=== PATIENT | female | born 1990 | race Caucasian/White ===

== ENCOUNTER 2020-05-05 18:04 | Inpatient (IN) | payer BC ==
[~2020-05-05] VITALS: Ht 165.1 cm; Wt 80.6 kg
[2020-05-05 19:42] VITALS: BP 112/68
[2020-05-05] MEDS ORDERED: LIT300C PO (21:14)
[2020-05-05] MEDS ORDERED: SERT50TA10 PO (21:14)
[2020-05-05] MEDS ORDERED: HYDR50TA65 PO (21:14)
--- NOTE | 2020-05-05 23:05 | NUR ---
Per Lorena: pt has been cleared by Dr. Soliman disease specialist to be released from any isolation or quarantine protocol as of 04/29/20, based on a positive 04/19/20 test. Per Topher Mejias, per Dr Vines, pt has been cleared for placement to [facility].
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
[2020-05-06] MEDS ORDERED: LORazepam 1 MG tablet PO PRN (02:25)
[2020-05-06] MEDS ORDERED: magnesium hydroxide 30ml (MOM) UD suspension PO PRN (02:25)
[2020-05-06] MEDS ORDERED: mag hydrox/Alum hydrox/simeth 30ml oral suspension PO PRN (02:25)
[2020-05-06] MEDS ORDERED: traZODone 50mg tablet PO PRN (02:25)
[2020-05-06] MEDS ORDERED: acetaminophen 325mg tablet PO PRN (02:25)
[2020-05-06] MEDS ORDERED: loperamide 2mg capsule PO PRN (02:25)
[2020-05-06] MEDS ORDERED: hydrOXYzine 25 MG tablet PO ONE (02:35)
[2020-05-06] MEDS ORDERED: lithium carbonate 150mg capsule PO SCH (08:00)
[2020-05-06 08:02] VITALS: BP 108/67
[2020-05-06] MEDS: sertraline 50mg tablet PO SCH (08:08)
--- NOTE | 2020-05-06 10:00 | NUR ---
Group Therapy: Process Group This Clinicians goals for this process group were as follows: (1) Ask scaling questions about Patients current anxiety, depression, and irritability symptoms as a check-in. (2) Share psychoeducation about automatic thoughts and cognitive distortions. (3) Share psychoeducation on CBT thought-stopping and, thought-reframing. (4) Discuss strategies for identifying negative, unhelpful, and/or irrational thoughts as quickly as possible to avoid unwanted escalation of mental health symptoms. (5) Process patients thoughts and reflections on this topic within the group milieu. Patient identified experiencing the following levels of anxiety, depression, and anger/irritability while present in the group milieu (0-low; 10-High). Anxiety: 12/16 Depression: 11/15 Anger/irritability: 10/16 Patient presented as properly oriented x4 during the process group. Patient was dressed in a white, long-sleeved shirt with blue jodi jeans that were appropriate within the milieu. Patient also wore a white face-covering. Psychomotor activity was unremarkable. Patient's thought content was clear, and concrete. Patient's thought process was clear, coherent, and linear. This Clinician did not observe Patient responding to any internal stimuli during session. The rate, and latency of Patients speech was within normal limits. Her tone of voice was soft. Patient maintained regular eye contact with this Clinician. Patient presented in calm euthymic mood, with congruent affect during the process group. Patient presented as cooperative, verbally engaged when called upon by this Clinician, and nonobtrusive within the group milieu. Patient occasionally made comments during the process group discussion on thinking errors and CBT interventions thought-stopping, and thought reframing when called upon by this Clinician to do so. Patient's answers indicated good awareness of the material being discussed. Omi Marina MA, BONDED STRAND OPERATOR Addendum: 05/07/20 at 0803 by Omi Marina Amended: Links added.
[2020-05-06] MEDS ORDERED: lithium carbonate 300mg SR tablet (LithoBID) PO ONE (10:15)
--- NOTE | 2020-05-06 14:08 | NUR ---
Malnutrition consult: Pt reports 2-13 lb wt loss with decreased appetite per malnutrition risk screen with RN. No wt hx in EMR, current documented wt is 137% IBW. Pt on a regular diet documented with average 50% PO intake first two meals. No documented decrease in muscle strength or edema. Pt currently lacks a minimum of two criteria for malnutrition. Will continue to follow and monitor further trends in PO intake and need for nutrition intervention. Addendum: 05/06/20 at [address] Amended: Links added.
[2020-05-06] MEDS ORDERED: risperiDONE 2mg tablet PO ONE (16:00)
[2020-05-06] MEDS ORDERED: hydrOXYzine 25 MG tablet PO PRN (16:30)
--- NOTE | 2020-05-06 17:57 | NUR ---
Nursing Progress Note: Legal hold: 5150 Client on involuntary status for GD Report received from TARI Salomon with use of SBAR. Why are they here: 29 y.o. female on 515 for acute psychosis and grave disability. Strong auditory hallucinations with delusions of hell and demons. Patient with recent diagnosis of COVID with positive testing on April 19 per reported hx and has been asymptomatic per family and pt. since April 26. Pt. has hx of bipolar d/o with similar psychotic symptoms 5 years ago. Assessment What has happened this shift: Received pt. at beginning of shift asleep in bed. Pt. up for breakfast and medications. Pt. refused her Tallmadge, reporting she only takes Tallmadge XR. Pt.s Tallmadge changed to Lithobid 300 BID per MDs order. Pt. took all meds. Pt. went back to sleep after breakfast, reporting feeling tired because she did not sleep much last night. 1:1 assessment done at bedside. Pt. becomes tearful when asked about why she is here. Pt. displays thought blocking stating, A heaviness just came on me I dont know. PT. asked if she felt safe, pt. states, I dont feel safe I dont know whats going on RN reinforced safety of unit. Pt. reports that she wants to go back to sleep. Pt. isolated to her room most of the day. Pt. overheard conversing with roommate. Pt. ate all meals in the community room. S/I, H/I: Denies. A/VH: Denies. Sleep: Intermittently napping throughout the day. Pt. states, I did not sleep so good last night. ADL's: Independent Group attendance: Yes. Were meds taken: Yes. Any med S/E No Mental Status Exam Appearance: Clean, well-kempt, young woman with glasses. Eye contact: direct Behavior: Restless Speech: Poverty of speech. Mood: Depressed, anxious Affect: Congruent with mood. Thought process: linear. Thought Content: Discharge. Cognition: A+OX4 Insight: Poor Judgment: Poor Interventions PRN's used: None Therapeutic interventions: Maintained a safe and supportive milieu, provided clear and simple instructions, encouraged independent performance of ADLs, monitored behaviors and need for intervention, provided positive reassurance as needed; Q15 min safety checks. Restraints/seclusion/emergency medication: N/A Justification of Continued Inpatient Treatment: Patient requires interruption of current crisis, medication adjustments, and a safe and supportive environment.
[2020-05-06 19:45] VITALS: BP 117/71
[2020-05-06] MEDS ORDERED: lithium carbonate 300mg SR tablet (LithoBID) PO SCH (20:00)
[2020-05-06] MEDS: hydrOXYzine 25 MG tablet PO SCH ×2 (21:00→21:06)
[2020-05-06] MEDS ORDERED: hydrOXYzine 25 MG tablet PO SCH (21:00)
[2020-05-06] MEDS: lithium carbonate 450mg CR tablet PO SCH (21:05)
[2020-05-06] MEDS: risperiDONE 0.5mg tablet PO SCH (21:06)
--- NOTE | 2020-05-06 21:45 | NUR ---
Nursing Progress Note: Legal hold: 5150 Client on involuntary status for GD Report received from Robert MARC with use of SBAR. Why are they here: 29 y.o. female on 5150 for acute psychosis and grave disability. Strong auditory hallucinations with delusions of hell and demons. Patient with recent diagnosis of COVID with positive testing on April 19 per reported hx and has been asymptomatic per family and pt. since April 26. Pt. has hx of bipolar d/o with similar psychotic symptoms 5 years ago. Assessment What has happened this shift: Pt isolates to her bedroom the entirety of the shift. She is visited by Dr. Coleman and is cooperative with assessment. Pt is soft spoken and timid. She answers questions adequately, but it takes her a few moments to respond and she apologizes. She said she is "very forgetful lately." She denies SI/HI/AH/VH at this time. She does have a flat affect and is minimal in her responses, she seems unsure of most things. She is cooperative with 1:1 assessment and takes the Eskilith 450mg and 1.5 mg of Risperdal after medication education. She declines the hydroxyzine for tonight because she isn't sure how the Risperdal will make her feel. S/I, H/I: Denies. A/VH: Denies. Sleep: see sleep assessment ADL's: Independent Group attendance: Yes Were meds taken: declined hydroxyzine Any med S/E None reported, none observed Mental Status Exam Appearance: Clean, WNL Eye contact: direct Behavior: isolative but cooperative Speech: Poverty of speech Mood: Depressed, anxious Affect: Congruent with mood. Thought process: linear Thought Content: understanding medications Cognition: A+OX4 Insight: Poor Judgment: Poor Interventions PRN's used: None Therapeutic interventions: Maintained a safe and supportive milieu, provided clear and simple instructions, encouraged independent performance of ADLs, monitored behaviors and need for intervention, provided positive reassurance as needed; Q15 min safety checks. Restraints/seclusion/emergency medication: N/A Justification of Continued Inpatient Treatment: Patient requires interruption of current crisis, medication adjustments, and a safe and supportive environment.
[2020-05-07 06:35] LABS: CHOL/HDL RATIO 3.5 (0.00-4.99); CHOLESTEROL 149 MG/DL (0-200); HDL CHOLESTEROL 42 MG/DL (35-60); LDL CHOLESTEROL 89 MG/DL (50-100); TRIGLYCERIDES 89 MG/DL (20-135)
[2020-05-07 06:37] LABS: HEMOGLOBIN A1C 5.6 % (4.5-6.2)
[2020-05-07 07:30] VITALS: BP 119/77
[2020-05-07] MEDS: sertraline 50mg tablet PO SCH (07:42)
[2020-05-07] MEDS: lithium carbonate 450mg CR tablet PO SCH ×2 (07:42→20:17)
[2020-05-07] MEDS: risperiDONE 0.5mg tablet PO SCH ×2 (08:00→20:18)
--- NOTE | 2020-05-07 10:00 | NUR ---
Group Therapy: Process Group This Clinicians goals for this process group were as follows: (1) Ask scaling questions about Patients current anxiety, depression, and irritability symptoms as a check-in. (2) Share psychoeducation about self-efficacy, and ego strength. (3) Provide psychoeducation on [employer] Drama triangleVictim, Persecutor, Rescuer dynamic. (4) Share psychoeducation on developing positive ego strengthpositive affirmations, positive self-talk, transitioning from a victim of circumstances to a survivor of circumstances. (5) Process patients thoughts and reflections on this topic within the group milieu. Patient identified experiencing the following levels of anxiety, depression, and anger/irritability while present in the group milieu (0-low; 10-High). Anxiety: 01/15 Depression: 12/16 Anger/irritability: 11/15 Patient presented as properly oriented x4 during the process group. Patient was dressed in nondescript, personal clothing that were appropriate within the milieu. Psychomotor activity was unremarkable. Patient's thought content was clear, and concrete. Patient's thought process was clear, coherent, and linear. This Clinician did not observe Patient responding to any internal stimuli during session, though she did report that she was feeling, "Confusion," when this Clinician asked her to describe any sensations that she was feeling in her body, due to her elevated anxiety score of 7/10. The rate, and latency of Patients speech was slightly delayed. Her tone of voice was soft. Patient maintained regular eye contact with this Clinician. Patient presented in calm euthymic mood, with congruent affect during the process group. Patient presented as: open, cooperative, verbally engaged when called upon by this Clinician, and nonobtrusive within the group milieu. Patient was an active participant during the process group discussion on [employer] Drama Waldo: which discussed the Victim, Persecutor, Rescuer dynamic, in addition to the discussion on positive affirmations that one could repeat to themselves to assist them in transitioning from the mindset of a victim to that of a survivor. Patient was able to identify positive affirmations that she could say about herself to develop positive ego strength in the spirit of strengthening a survivor's mentality. Omi Marina MA, OIL OPERATOR Addendum: 05/07/20 at 1138 by Omi Marina SS Amended: Links added.
--- NOTE | 2020-05-07 11:50 | NUR ---
PSYCHOSOCIAL ASSESSMENT Cirs is a 29 y/o single female who was placed on a 5150 by [facility] for grave disability. She was brought to [facility] by her roommates because she was speaking incoherently, having trouble getting her words out, had not come out of her room for 24 hours and was found in her bed which she had urinated and defecated in. Cris moved to [place] from [place] at the end of February to attend [employer]. She lives with a couple about 5 other housemates in [place]. She was tested for Covid due to an outbreak at her school. She wsa the only one of her roommates that tested positive and had to quarantine in her room. She reported she had been feeling "dark, heavy, depressed, something weighing on me" prior to testing positive for Covid. She reported she also started to have racing thoughts and could not sleep. She was a little fuzzy on the details which brought her to [facility]. She reported she had a similar episode 5 years ago in which she was hospitalized and diagnosed with Bipolar. She reported at that time she was prescribed lithium and an antipsychotic (could not recall the name). She was able to stop taking the antipsychotic and has continued taking a low dose of lithium. She asked jingle writer if there was a medication that could help with voices, however, she stated she was not entirely sure if she was hearing voices or not. She presented as paranoid and stated she was worried her food and water was poisoned. She stated she has been able to eat here at [facility], yet she is still concerned about being poisoned. She reported she is still feeling fearful and scared. Her responses to questions were often delayed as if she may have been attending to internal stimuli. She seemed paranoid to provide some information and at times it appeared as if she really did not recall the information being asked. Cris signed a release for jingle writer to speak to her parents. Mh Teacher will call dad back today as he had called yesterday prior to release being signed. LIDIA Serrano Addendum: 05/07/20 at 1152 by Saskia Rosenberg SS Amended: Links added.
--- NOTE | 2020-05-07 12:16 | NUR ---
MED INFO FROM DAD Spoke to Cris's dad, Moise Zhu (ph# [phone]), who reported that Cris was on [place] and 15 mg Zyprexa when she was hospitalized 5 years ago. He reported she did well on Zyprexa and was eventually tapered off it once her psychosis abated. This morning Cris refused her risperdal due to side effects after she took it last night. Dad reported Cris called her psychiatrist in [place] when she began to feel depressed and he started her on zoloft a couple weeks ago. Psychiatrist has been apprised of Cris's current hospitalization. Psychiatrist: Dr Marcos Hilaroi Office # [phone] LIDIA Serrano Addendum: 05/07/20 at 1323 by Saskia Rosenberg SS Maida called back to clarify doses of Zyprexa Zyprexa: 5 mg QAM, 10 mg QHS
[2020-05-07] MEDS: acetaminophen 325mg tablet PO PRN (16:59)
--- NOTE | 2020-05-07 18:02 | NUR ---
Nursing Progress Note: Legal hold: 5150 Client on involuntary status for GD Report received from Mile Mcgraw RN with use of SBAR. Why are they here: 29 y.o. female on 5149 for acute psychosis and grave disability. Strong auditory hallucinations with delusions of hell and demons. Patient with recent diagnosis of COVID with positive testing on April 19 per reported hx and has been asymptomatic per family and pt. since April 26. Pt. has hx of bipolar d/o with similar psychotic symptoms 5 years ago. Assessment What has happened this shift: Received pt. at beginning of shift asleep in bed. Pt. refused Risperdal but took lithium and Zoloft. Pt. reports lithium made her feel like I was being tortured last night. Pt. ate all meals in the community room. Pt. isolated to her room in the AM. 1:1 done at bedside. Pt. asks this RN if the staff have her best interests in mind. RN reinforced trustworthiness of the staff. Pt. denies SI/HI, when RN asked pt. if she was hearing voices pt. did not respond. Pt. stopped talking after this. RN saw pt. in cano pacing. RN asked pt. how she was feeling, pt. states, I dont know. Pt. began to cry. RN asked pt. if she was feeling fearful and pt. did not respond. RN asked pt. if she wanted to talk in her room, pt. did not respond. Pt. then states she feels tension in her head Pt. states, Something has been implanted in me to track me. Yuridia had tightness in my head for 2 years. Pressure. Its been like this every day. RN offered PRN analgesic and pt. took Tylenol 650mg with good effect. S/I, H/I: Denies. A/VH: Denies. Sleep: Intermittently napping throughout the day ADL's: Independent Group attendance: Yes. Were meds taken: Yes. Any med S/E No Mental Status Exam Appearance: Clean, well-kempt, young woman with glasses. Eye contact: direct Behavior: Isolates to room in the AM. Pacing in the afternoon, suspicious. Speech: Soft, minimal, poverty of speech. Mood: Depressed and anxious Affect: Congruent with mood. Thought process: Paranoid, tangential. Thought Content: Discharge. Cognition: A+OX4 Insight: Poor Judgment: Poor Interventions PRN's used: Tylenol Therapeutic interventions: Maintained a safe and supportive milieu, provided clear and simple instructions, encouraged independent performance of ADLs, monitored behaviors and need for intervention, provided positive reassurance as needed; Q15 min safety checks. Restraints/seclusion/emergency medication: N/A Justification of Continued Inpatient Treatment: Patient requires interruption of current crisis, medication adjustments, and a safe and supportive environment.
[2020-05-07 19:47] VITALS: BP 117/74
[2020-05-07] MEDS: hydrOXYzine 25 MG tablet PO SCH ×2 (20:18→21:00)
[2020-05-07 21:33] VITALS: BP 107/94
--- NOTE | 2020-05-08 01:10 | NUR ---
Nursing Progress Note: Legal hold: 5150 Client on involuntary status for GD Report received from Robert MARC with use of SBAR. Why are they here: 29 y.o. female on 515 for acute psychosis and grave disability. Strong auditory hallucinations with delusions of hell and demons. Patient with recent diagnosis of COVID with positive testing on April 19 per reported hx and has been asymptomatic per family and pt. since April 26. Pt. has hx of bipolar d/o with similar psychotic symptoms 5 years ago. Assessment What has happened this shift: Pt was pacing the isles during shift change. When asked how she was doing she states Im just walking, is that okay? Her heart rate was elevated (120bpm) and when this RN asked if she was feeling anxious she states I just feel like there is some bad people in here. Ensured her that she was safe here and that nothing would happen to her. Offered pt antianxiety medication but she refused. Pt continued to pace for a while. She was cooperative for 1:1 physical assessment, however she only took [place]. She refused to take Risperidone and Atarax stating that he Doctor had told her that she didnt need this medication. Even after some encouragement and education pt still refused. She denies any A/VH, S/I, or H/I. She appears very depressed and paranoid about being here. A few minutes after taking [place], pt states that she was feeling like she was going to faint. Vital signs were taken and they were WNL. (BP was 107/94, HR 99) She also requested to take a shower. She asked this RN to stand outside of the bathroom while she took the shower. However she later on changed her mind because she was not able to use her own shampoo. At around midnight when checking on pt, she requested to take a shower. She did and requested for this RN to stand outside the door while she was in there. S/I, H/I: Denies. A/VH: Denies. Sleep: Had some trouble falling asleep but refused any meds ADL's: Independent Group attendance: Yes Were meds taken: Only took [place] Any med S/E: Pt reports that she feels dizzy after taking [place] Mental Status Exam Appearance: Appropriate, clean, wearing personal clothing Eye contact: Indirect, very minimal Behavior: Very paranoid, pacing, guarded Speech: Poverty of speech Mood: Depressed, fearful Affect: Flat Thought process: Linear Thought Content: Believes that people here are going to harm her, meds Cognition: A+OX4 Insight: Poor Judgment: Poor Interventions PRN's used: None Therapeutic interventions: Maintained a safe and supportive milieu, provided clear and simple instructions, encouraged independent performance of ADLs, monitored behaviors and need for intervention, provided positive reassurance as needed; Q15 min safety checks. Restraints/seclusion/emergency medication: N/A Justification of Continued Inpatient Treatment: Patient requires interruption of current crisis, medication adjustments, and a safe and supportive environment.
[2020-05-08] MEDS: acetaminophen 325mg tablet PO PRN (04:06)
[2020-05-08 07:40] VITALS: BP 118/79
[2020-05-08] MEDS: lithium carbonate 450mg CR tablet PO SCH ×2 (07:42→20:36)
[2020-05-08] MEDS: sertraline 50mg tablet PO SCH (07:42)
--- NOTE | 2020-05-08 18:07 | NUR ---
Nursing Progress Note: Legal hold: 5150 Client on involuntary status for GD Report received from Mile Mcgraw RN with use of SBAR. Why are they here: 29 y.o. female on 5149 for acute psychosis and grave disability. Strong auditory hallucinations with delusions of hell and demons. Patient with recent diagnosis of COVID with positive testing on April 19 per reported hx and has been asymptomatic per family and pt. since April 26. Pt. has hx of bipolar d/o with similar psychotic symptoms 5 years ago. Assessment What has happened this shift: Pt. in bed asleep at start of shift. Pt. up for breakfast and took medications. Pt. ate all meals in the community room. RN spoke with pt.s father who reports that pt. did very well on Zyprexa in the past, Pt. to start on Zyprexa 10mg tonight. 1:1 done at bedside, Pt. continues to feel paranoid, however, pt. better able to express her feelings today than yesterday. Pt. reports that she feels there are gangs here and that the staff is conspiring against her. Pt. feels unsafe. Pt. feels like the food is being poisoned because she starts craving it like craving drugs. In afternoon pt. reports she is feeling better. Pt. seen out in milieu more than yesterday, watching TV and socializing with peers. Pt. states, Im usually much more extroverted. Pt. reports that she is losing her hair and is concerned about this. S/I, H/I: Denies. A/VH: Denies. Sleep: Napped x1 today ADL's: Independent Group attendance: Yes. Were meds taken: Yes. Any med S/E Denies Mental Status Exam Appearance: Clean, well-kempt, young woman with glasses. Eye contact: direct Behavior: Isolating less today, seen in [facility] watching TV and socializing with peers. Pt. reading Bible in her room. Speech: WNL Mood: Euthymic with some anxiety Affect: Congruent with mood. Thought process: Paranoid but linear. Thought Content: Discharge Cognition: A+OX4 Insight: Poor Judgment: Poor Interventions PRN's used: None Therapeutic interventions: Maintained a safe and supportive milieu, provided clear and simple instructions, encouraged independent performance of ADLs, monitored behaviors and need for intervention, provided positive reassurance as needed; Q15 min safety checks. Restraints/seclusion/emergency medication: N/A Justification of Continued Inpatient Treatment: Patient requires interruption of current crisis, medication adjustments, and a safe and supportive environment.
[2020-05-08 19:16] VITALS: BP 118/73
[2020-05-08] MEDS: olanzapine 10mg tablet PO SCH (20:36)
[2020-05-08] MEDS: hydrOXYzine 25 MG tablet PO SCH (20:36)
--- NOTE | 2020-05-09 00:04 | NUR ---
Nursing Progress Note: Legal hold: 5250 Client on involuntary status for GD Report received from Robert MARC with use of SBAR. Why are they here: 29 y.o. female on 5150 for acute psychosis and grave disability. Strong auditory hallucinations with delusions of hell and demons. Patient with recent diagnosis of COVID with positive testing on April 19 per reported hx and has been asymptomatic per family and pt. since April 26. Pt. has hx of bipolar d/o with similar psychotic symptoms 5 years ago. Assessment What has happened this shift: Pt was in her room during shift change. She says that she is just resting. When asked how her day had gone she states I just dont feel like myself. I feel very empty inside. This RN asked if she had any support and she states Well I dont know who I can trust anymore, I think the only people I can trust are my parents. She continues with her paranoid delusions about people wanting to harm her. Pt was for the most part isolative to her room. She was cooperative for 1:1 physical assessment and agreed to take all her medication. She overall does not seem as paranoid as yesterday and is more hopeful that she will be able to get help here. She states that she feels tired and was trying to sleep but the increase noise in the unit keeps her awake. Earplugs were provided. Will continue to monitor. S/I, H/I: Denies. A/VH: Denies. 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 Were meds taken: Yes Any med S/E: None reported or observed Mental Status Exam Appearance: Appropriate, clean, wearing personal clothing Eye contact: Good, direct Behavior: Cooperative, less paranoid, isolative Speech: Poverty of speech Mood: States she feels empty inside Affect: Flat Thought process: Linear Thought Content: Meds, discharge, wants to get better Cognition: A+OX4 Insight: Poor Judgment: Poor Interventions PRN's used: None Therapeutic interventions: Maintained a safe and supportive milieu, provided clear and simple instructions, encouraged independent performance of ADLs, monitored behaviors and need for intervention, provided positive reassurance as needed; Q15 min safety checks. Restraints/seclusion/emergency medication: N/A Justification of Continued Inpatient Treatment: Patient requires interruption of current crisis, medication adjustments, and a safe and supportive environment.
[2020-05-09 07:00] VITALS: BP 115/77
[2020-05-09] MEDS: lithium carbonate 450mg CR tablet PO SCH ×2 (07:57→20:16)
[2020-05-09] MEDS: sertraline 50mg tablet PO SCH (07:57)
--- NOTE | 2020-05-09 09:36 | NUR ---
Initial: Pt admit DX bipolar disorder per EMR. PO 75-100% meals improved from 50-75% fluctuating initial PO meeting needs. LBM 05/08. No nutrition concerns at this time. Will continue to monitor. Rec: 1. continue regular diet 2. bowel care per rx 3. wt per rx Addendum: 05/09/20 at [address] Amended: Links added.
[2020-05-09] MEDS: acetaminophen 325mg tablet PO PRN (17:09)
--- NOTE | 2020-05-09 17:21 | NUR ---
Nursing Progress Note: Legal hold: 5150 Client on involuntary status for GD Report received from Mile Mcgraw RN with use of SBAR. Why are they here: 29 y.o. female on 5149 for acute psychosis and grave disability. Strong auditory hallucinations with delusions of hell and demons. Patient with recent diagnosis of COVID with positive testing on April 19 per reported hx and has been asymptomatic per family and pt. since April 26. Pt. has hx of bipolar d/o with similar psychotic symptoms 5 years ago. Assessment What has happened this shift: Received pt sleeping in bed. Patient takes medication without incident. Patient reports that she is feeling depressed and empty. Patient talks about her spiritual life, stating that this is the most important thing to her. Pt. States she feels guilty when she reads the bible, because thoughts come into her mind that tell her she will never achieve spirituality as she had before. Discussed this at length with patient. Father called x 2 to get updates. S/I, H/I: Denies. A/VH: Denies. Sleep: 8.25 hrs NOC. Napped ADL's: Independent Group attendance: Yes. Were meds taken: Yes. Any med S/E Denies Mental Status Exam Appearance: Clean, well-kempt, young woman with glasses. Eye contact: direct Behavior: Pleasant and cooperative. Isolates to room. Speech: Clear, audible. Mood: Euthymic with some anxiety Affect: Congruent with mood. Thought process: Paranoid but linear. Thought Content: Feeling empty and distant from God. Cognition: A+OX4 Insight: Poor Judgment: Poor Interventions PRN's used: Tylenol, headache. Therapeutic interventions: Maintained a safe and supportive milieu, provided clear and simple instructions, encouraged independent performance of ADLs, monitored behaviors and need for intervention, provided positive reassurance as needed; Q15 min safety checks. Restraints/seclusion/emergency medication: N/A Justification of Continued Inpatient Treatment: Patient requires interruption of current crisis, medication adjustments, and a safe and supportive environment.
[2020-05-09 19:25] VITALS: BP 133/78
[2020-05-09] MEDS: olanzapine 10mg tablet PO SCH (20:16)
[2020-05-09] MEDS: hydrOXYzine 25 MG tablet PO SCH (20:17)
--- NOTE | 2020-05-09 23:33 | NUR ---
Nursing Progress Note: Legal hold: 5150 Client on involuntary status for GD Report received from TARI Jones with use of SBAR. Why are they here: 29 y.o. female on 5150 for acute psychosis and grave disability. Strong auditory hallucinations with delusions of hell and demons. Patient with recent diagnosis of COVID with positive testing on April 19 per reported hx and has been asymptomatic per family and pt. since April 26. Pt. has hx of bipolar d/o with similar psychotic symptoms 5 years ago. Assessment What has happened this shift: Patient was up and in room at change of shift. Pt isolating to room due to a peer making her uncomfortable saying inappropriate things about her looks. Peer asked to leave her alone and pt reassured that he wont bother her. Pt showered and was up for snack and meds. Pt states that she is feeling depressed but not suicidal. pt is looking foreword to a better day tomorrow. S/I, H/I: Denies. A/VH: Denies. Sleep: 8.25 hrs NOC. Napped ADL's: Independent Group attendance: Yes. Were meds taken: Yes. Any med S/E Denies Mental Status Exam Appearance: Clean, well-kempt, young woman with glasses. Eye contact: direct Behavior: Pleasant and cooperative. Isolates to room. Speech: Clear, audible. Mood: Euthymic with some anxiety Affect: Congruent with mood. Thought process: Paranoid but linear. Thought Content: Feeling empty and distant from God. Cognition: A+OX4 Insight: Poor Judgment: Poor Interventions PRN's used: Tylenol, headache. Therapeutic interventions: Maintained a safe and supportive milieu, provided clear and simple instructions, encouraged independent performance of ADLs, monitored behaviors and need for intervention, provided positive reassurance as needed; Q15 min safety checks. Restraints/seclusion/emergency medication: N/A Justification of Continued Inpatient Treatment: Patient requires interruption of current crisis, medication adjustments, and a safe and supportive environment.
[2020-05-10 08:00] VITALS: BP 122/74
[2020-05-10] MEDS: sertraline 50mg tablet PO SCH (09:01)
[2020-05-10] MEDS: lithium carbonate 450mg CR tablet PO SCH ×2 (09:01→20:09)
--- NOTE | 2020-05-10 10:00 | NUR ---
Group Therapy: Process Group This Clinicians goals for this process group were as follows: (1) Ask scaling questions about patients current anxiety, depression, and irritability symptoms as a check-in. (2) Share psychoeducation about three rules of brief solution-focused problem-solving: A) Stop doing what clearly isnt working, B) Do something different, C) If the different activity works, then do more of it. If it doesnt work, then go back to principle A). (3) Identify examples of thoughts, activities, and behaviors that people do that no longer work for them, or they create more problems than solutions. (4) Identify examples of thoughts, activities, and behaviors that may help create better emotional/behavioral outcomes and lead to good solutions to problems. (5) Engage patients in discussion of the topics shared within the group milieu. Patients behaviors were monitored by milieu staff during the process group discussion. Patient identified experiencing the following levels of anxiety, depression, and anger/irritability while present in the group milieu (0-low; 10-High). Anxiety: 610 Depression: 4/10 Anger/irritability: 6/10 Patient presented as properly oriented x4 during the process group. Patient was dressed in nondescript, personal clothing that were appropriate within the milieu. Psychomotor activity was unremarkable. Patient's thought content was clear, and concrete. Patient's thought process was clear, coherent, and linear. This Clinician did not observe Patient responding to any internal stimuli during session. The rate, and latency of Patients speech was slightly delayed. Patient spoke in a soft tone of voice. Patients speech was clear, and understandable. Patient maintained regular eye contact with this Clinician. Patient presented in calm euthymic mood, with congruent affect during the process group. Patient presented as cooperative, verbally engaged when addressed by this Clinician, and nonobtrusive within the group milieu. Patient participated in an appropriate fashion, making on topic contributions to the process group discussion on brief solution-focused problem-solving thinking when asked by this Clinician to participate. Omi Marina MA, LIDIA Addendum: 05/11/20 at 0803 by Omi WHITE Amended: Links added.
--- NOTE | 2020-05-10 16:17 | NUR ---
Nursing Progress Note: Legal hold: 5250 Client on involuntary status for GD Report received from nurse with use of SBAR: Anant RN Why are they here: Pt. is on a 5150 for acute psychosis and grave disability. Strong auditory hallucinations with delusions of hell and demons. Patient with recent diagnosis of COVID with positive testing on April 19 per reported hx, and has been asymptomatic per family and pt. since April 26. Pt. has hx of bipolar d/o with similar psychotic symptoms 5 years ago. Assessment What has happened this shift: Received pt. sleeping in bed at the beginning of the shift, she awoke and attended breakfast in the Group Room. 1:1 completed at bedside, pt. presents as cooperative, anxious, and guarded. She denies any S/I, H/I, or A/V/JAIN, however states in a somewhat paranoid delusional way, "I am still feeling nervous about things here." When further questioned by this speech writer what she was feeling nervous about, pt. reported that she was not sure and stated, "I just don't feel like myself." Pt. attended groups, and was later observed to be up coloring and interacting appropriately, however minimally with others. She later did lunges down the hallway several times. Pt did not attend her court hearing this afternoon, she reports that she feels she needs more time here. She spoke to her parents on the phone and reported conversation went well. S/I, H/I: Denies A/VH: Denies Sleep: Sleep hours are 8 ADL's: Independent Group attendance: Yes Were meds taken: Yes Any med S/E: None Mental Status Exam Appearance: Neat and appropriately dressed Eye contact: Good Behavior: Cooperative, anxious, and guarded Speech: Soft, WNL Mood: Guarded, however pleasant Affect: Blunted Thought process: Poverty of thought Thought Content: Possible paranoid delusions Cognition: A&O X4 Insight:Poor Judgment: Fair Interventions PRN's used: None Therapeutic interventions: Introduced self and established rapport, maintained a safe and therapeutic environment, ensured contract for safety, provided clear and simple instructions, provided active listening and positive encouragement, and maintained Q 15min safety checks. Restraints/seclusion/emergency medication: N/A Justification of Continued Inpatient Treatment: Per CAROL Zelaya, pt. continues to require medication adjustments and a safe and supportive environment.
[2020-05-10] MEDS: olanzapine 10mg tablet PO SCH (20:10)
[2020-05-10 20:11] VITALS: BP 125/86
[2020-05-10] MEDS: hydrOXYzine 25 MG tablet PO SCH (20:32)
--- NOTE | 2020-05-11 00:06 | NUR ---
Nursing Progress Note: Legal hold: 5250 Client on involuntary status for GD Report received from nurse with use of SBAR: Anant RN Why are they here: Pt. is on a 5150 for acute psychosis and grave disability. Strong auditory hallucinations with delusions of hell and demons. Patient with recent diagnosis of COVID with positive testing on April 19 per reported hx, and has been asymptomatic per family and pt. since April 26. Pt. has hx of bipolar d/o with similar psychotic symptoms 5 years ago. Assessment What has happened this shift: Pt was up and in the cano doing lunges at shift change and she asked to take a shower after she was done. Pt was cooperative and states that she feels pretty good today. Pt states that she gets anxious at times and dose not feel right. She was med compliant stayed to her self when up. S/I, H/I: Denies A/VH: Denies Sleep: Sleep hours are 8 ADL's: Independent Group attendance: Yes Were meds taken: Yes Any med S/E: None Mental Status Exam Appearance: Neat and appropriately dressed Eye contact: Good Behavior: Cooperative, anxious, and guarded Speech: Soft, WNL Mood: Guarded, however pleasant Affect: Blunted Thought process: Poverty of thought Thought Content: Possible paranoid delusions Cognition: A&O X4 Insight:Poor Judgment: Fair Interventions PRN's used: None Therapeutic interventions: Introduced self and established rapport, maintained a safe and therapeutic environment, ensured contract for safety, provided clear and simple instructions, provided active listening and positive encouragement, and maintained Q 15min safety checks. Restraints/seclusion/emergency medication: N/A Justification of Continued Inpatient Treatment: Per CAROL Zelaya, pt. continues to require medication adjustments and a safe and supportive environment.
[2020-05-11 08:00] VITALS: BP 132/78
[2020-05-11] MEDS: sertraline 50mg tablet PO SCH (09:24)
[2020-05-11] MEDS: lithium carbonate 450mg CR tablet PO SCH ×2 (09:46→20:23)
--- NOTE | 2020-05-11 09:58 | NUR ---
Nursing Note: Pt's scheduled [place] given late r/t late lab draw, CAROL Zelaya is aware. Pt's [place] level is WNL.
--- NOTE | 2020-05-11 10:00 | NUR ---
Group Therapy: Process Group This Clinicians goals for this process group were as follows: (1) Ask scaling questions about Patients current anxiety, depression, and irritability symptoms as a check-in. (2) Share psychoeducation about the importance of being able to identify regular activities, support people, and thoughts (Anchors) that contribute to mental health well-being and stability. (3) Share psychoeducation about how the gradual removal of said activities, people and behaviors may lead to the erosion of mental well-being and stability. (4) Encourage patients to identify support anchors that they need to maintain in their lives that will promote their mental and emotional well-being. (5) Engage Patients in discussion of the topics shared within the group milieu. Patients behaviors were monitored by milieu staff during the process group discussion. Patient identified experiencing the following levels of anxiety, depression, and anger/irritability while present in the group milieu (0-low; 10-High). Anxiety: 10 Depression: 10 Anger/irritability: 01/15 Patient presented as properly oriented x4 during the process group. Patient was dressed in nondescript, personal clothing that were appropriate within the milieu. Psychomotor activity was unremarkable. Patient's thought content was clear, and concrete. Patient's thought process was clear, coherent, and linear. This Clinician did not observe Patient responding to any internal stimuli during session. The rate, and latency of Patients speech was within normal limits. Patient's tone of speech was soft. Patients speech was clear, and understandable. Patient maintained regular eye contact with this Clinician. Patient presented in calm euthymic mood, with congruent affect during the process group. Patient presented as cooperative, verbally engaged when addressed by this Clinician, and nonobtrusive within the group milieu. Patient was an active participant in the process group discussion on grounding interventions (anchors) that one could utilize to maintain optimal/baseline mental health. Patient reported that maintaining connection to her spiritual tradition, singing and listening to protestant music, were grounding interventions that helps keep her tethered to a place of optimal/baseline mental health functioning. At the end of the process group, as a learning takeaway, Patient reported her awareness that it would be beneficial for her to express more gentleness toward herself, instead of getting frustrated, when she doesn't make as much progress toward her mental health goals as she would like to. Omi Marina MA, NEEDLE FELT MAKING MACHINE OPERATOR Addendum: 05/12/20 at 0801 by Omi WHITE Amended: Links added.
--- NOTE | 2020-05-11 12:12 | NUR ---
Nursing Progress Note: Legal hold: 5250 Client on involuntary status for GD Report received from nurse with use of SBAR: TARI Caballero Why are they here: Pt. is on a 5150 for acute psychosis and grave disability. Strong auditory hallucinations with delusions of hell and demons. Patient with recent diagnosis of COVID with positive testing on April 19 per reported hx, and has been asymptomatic per family and pt. since April 26. Pt. has hx of bipolar d/o with similar psychotic symptoms 5 years ago. Assessment What has happened this shift: Received pt. sleeping in bed at the beginning of the shift, she again awoke independently and attended breakfast in the Group Room. 1:1 completed at bedside, pt. continues to present as guarded and slightly anxious. She reports ongoing anxiety and depression, but admits that she feels her medications are helping. Pt. also continues to present with some paranoid delusional thinking, she states, "I don't feel like myself, I just feel empty inside, and like I have to make an effort to talk to others." Pt. also requests to use her own water when taking medications, instead of the water provided by this wrier, however she remains medication compliant. She again attended groups, and was noted to be interacting minimally with others in the Group Room, mostly coloring/writing by herself. S/I, H/I: Denies A/VH: Denies Sleep: Sleep hours are 7.75, pt. reports she slept well ADL's: Independent Group attendance: Yes Were meds taken: Yes Any med S/E: None Mental Status Exam Appearance: Neat and appropriately dressed Eye contact: Good Behavior: Cooperative, anxious, and guarded Speech: Soft, WNL Mood: Guarded, however pleasant Affect: Blunted Thought process: Poverty of thought Thought Content: Possible paranoid delusions Cognition: A&O X4 Insight:Poor Judgment: Fair Interventions PRN's used: None Therapeutic interventions: Maintained a safe and therapeutic environment, ensured contract for safety, provided clear and simple instructions, provided active listening and positive encouragement, obtained ordered [place] level, and maintained Q 15min safety checks. Restraints/seclusion/emergency medication: N/A Justification of Continued Inpatient Treatment: Per CAROL Zelaya, pt. continues to require a safe and supportive environment and will continue to be monitored over the next few days before any additional medication changes are made.
[2020-05-11 20:14] VITALS: BP 133/88
[2020-05-11] MEDS: OLANZAPINE 5 MG TABLET PO SCH (20:24)
[2020-05-11] MEDS: hydrOXYzine 25 MG tablet PO SCH (20:25)
--- NOTE | 2020-05-11 22:42 | NUR ---
Nursing Progress Note: Legal hold: 5250 Client on involuntary status for GD Report received from nurse with use of SBAR: TARI Jones Why are they here: Pt. is on a 5150 for acute psychosis and grave disability. Strong auditory hallucinations with delusions of hell and demons. Patient with recent diagnosis of COVID with positive testing on April 19 per reported hx, and has been asymptomatic per family and pt. since April 26. Pt. has hx of bipolar d/o with similar psychotic symptoms 5 years ago. Assessment What has happened this shift: Patient was up and playing the [employer]. Pt was social with some peers. Pt states that she still feels depressed and has some paranoid ideas. pt states that she still dose not feel like her self but feeling better. S/I, H/I: Denies A/VH: Denies Sleep: Sleep hours are 7.75, pt. reports she slept well ADL's: Independent Group attendance: Yes Were meds taken: Yes Any med S/E: None Mental Status Exam Appearance: Neat and appropriately dressed Eye contact: Good Behavior: Cooperative, anxious, and guarded Speech: Soft, WNL Mood: Guarded, however pleasant Affect: Blunted Thought process: Poverty of thought Thought Content: Possible paranoid delusions Cognition: A&O X4 Insight:Poor Judgment: Fair Interventions PRN's used: None Therapeutic interventions: Maintained a safe and therapeutic environment, ensured contract for safety, provided clear and simple instructions, provided active listening and positive encouragement, obtained ordered [place] level, and maintained Q 15min safety checks. Restraints/seclusion/emergency medication: N/A Justification of Continued Inpatient Treatment: CAROL Bell, pt. continues to require a safe and supportive environment and will continue to be monitored over the next few days before any additional medication changes are made.
[2020-05-12 07:30] VITALS: BP 118/73
[2020-05-12] MEDS: sertraline 50mg tablet PO SCH (07:36)
[2020-05-12] MEDS: lithium carbonate 450mg CR tablet PO SCH ×2 (07:36→20:13)
--- NOTE | 2020-05-12 08:38 | NUR ---
1:1 with Cris Lynch reported she slept well last night, however, is still feeling quite tired. Speech was clear with less latency. She was tearful and reported feeling depressed and asked if her Zoloft could be increased. Informed her communications writer will inquire about this during tx team meeting this morning. Cris reported she still doesn't feel like herself and is feeling paranoid. She reported she feels like there might be some sort of sex trafficking on the unit or that there is something else going on. She reported she is also paranoid about some of the food, but is trying to eat some. She also talked about her patricia and feeling disconnected from God. Provided empathic listening and validated her concerns. Commended her for being open and compliant with taking medications and for going to groups. Encouraged her to continue going to groups and focus on the things she can control. Asked her about her plan when she is discharged. She reported she is not sure what she would like to do. She is aware that her parents are flying to [place] tomorrow. Informed her that they may be able to visit her on the unit due to a change in the visitor policy. She reported she is not ready to see her parents yet, she does not want them to see her this way. Asked her to let communications writer know when she does feel like she wants to see them so that can possibly be arranged. LIDIA Serrano
--- NOTE | 2020-05-12 09:09 | NUR ---
PHONE CALL W/DAD Spoke with Cris's dad, Moise (ph# [phone]) and apprised him of her progress. He is flying out tomorrow and will be in [place] tomorrow evening. He is planning on meeting with Cris's housemates on Sunday and packing up her belongings. He would like Cris to return home with him when she is ready for discharge. LIDIA Serrano
--- NOTE | 2020-05-12 10:00 | NUR ---
Group Therapy: Process Group This Clinicians goal for this process group were as follows: (1) Share psychoeducation about core beliefs and how these beliefs shapes how one views reality. (2) Compare and contrast how people with different core beliefs might interpret an identical situation differently. (3) Discuss how changing negative core beliefs to more balanced, helpful, and rational alternatives can lead to improved behaviors and mood. (4) Process patients thoughts and reflections on this topic within the group milieu. Patient behavior, and those of his peers were monitored by milieu staff. No prompting was needed to redirect any maladaptive behaviors during the process group. Patient identified experiencing the following levels of anxiety, depression, and anger/irritability while present in the group milieu (0-low; 10-High). Anxiety: 10 Depression: 510 Anger/irritability: 510 Patient presented as properly oriented x4 during the process group. Patient was dressed in nondescript, personal clothing that were appropriate within the milieu. Psychomotor activity was unremarkable. Patient's thought content was clear, and concrete. Patient's thought process was clear, coherent, and linear. This Clinician did not observe Patient responding to any internal stimuli during session. The rate, latency, and tone of Patients speech was within normal limits. Patients speech was clear, and understandable. Patient maintained regular eye contact with this Clinician. Patient presented in calm euthymic mood, with congruent affect during the process group. Patient presented as open, cooperative, verbally engaged when addressed by this Clinician, and nonobtrusive within the group milieu. Patient was an active verbal participant during the process group discussion on CBT core beliefs. Patient's comments indicated her awareness of the importance of altering irrational, unhelpful, and unbalanced core beliefs about oneself to more rational, helpful, and balanced alternatives in order to assist one in reducing the intensity, duration, and frequency of unwanted mental health symptoms. Omi Marina MA, [employer] Addendum: 05/13/20 at 0834 by Omi Salas SS Amended: Links added.
--- NOTE | 2020-05-12 16:36 | NUR ---
Nursing Progress Note: Legal hold: 5250 Expires 05/22 Client on involuntary status for GD Report received from nurse with use of SBAR: TARI Caballero Why are they here: Pt. is on a 5150 for acute psychosis and grave disability. Strong auditory hallucinations with delusions of hell and demons. Patient with recent diagnosis of COVID with positive testing on April 19 per reported hx, and has been asymptomatic per family and pt. since April 26. Pt. has hx of bipolar d/o with similar psychotic symptoms 5 years ago. Assessment What has happened this shift: Received patient sleeping at shift change, no distress noted. Pt was cooperative and calm when she awoke for breakfast. Pt states I got good sleep last night. Pt ambulates halls while waiting for breakfast with a peer; socializing appropriately. Pt denies SI, but does endorse racing thoughts, my mind just goes everywhere. Pt states she continues to have trust issues, even when she is talking to peers. Parents are flying out from [place] and patient isnt sure if she wants to see them, r/t to the paranoia. I am still not feeling myself. Pt states her mood is getting better. Pt was visible on unit observed visiting with peers appropriately, but mostly isolated to her room sitting in the chair or reading. S/I, H/I: Denies both. A/VH: Denies both. Sleep: Sleep hours are 7.75, pt. reports I got good sleep. ADL's: Independent Group attendance: Yes Were meds taken: Yes, without incident. Any med S/E: None reported or observed. Mental Status Exam Appearance: Neat and appropriately dressed in personal attire. Eye contact: Good Behavior: Cooperative and calm. Attends group and is visible on unit. Speech: Soft, clear, normal rate/rhythm. Mood: Guarded, however pleasant Affect: Blunted Thought process: Poverty of thought Thought Content: Possible paranoid delusions Cognition: A&O X4 Insight: Poor Judgment: Fair Interventions PRN's used: None Therapeutic interventions: Maintained a safe and therapeutic environment, provided clear and simple instructions, provided active listening and positive encouragement, maintained Q 15min safety checks. Restraints/seclusion/emergency medication: N/A Justification of Continued Inpatient Treatment: Per CAROL Zelaya, pt. continues to require a safe and supportive environment and will continue to be monitored over the next few days before any additional medication changes are made.
[2020-05-12 20:12] VITALS: BP 129/73
[2020-05-12] MEDS: OLANZAPINE 5 MG TABLET PO SCH (20:12)
[2020-05-12] MEDS: hydrOXYzine 25 MG tablet PO SCH (20:13)
--- NOTE | 2020-05-12 23:26 | NUR ---
Nursing Progress Note: Legal hold: 5250 Client on involuntary status for GD Report received from Anant MARC with use of SBAR. Why are they here: 29 y.o. female on 5149 for acute psychosis and grave disability. Strong auditory hallucinations with delusions of hell and demons. Patient with recent diagnosis of COVID with positive testing on April 19 per reported hx and has been asymptomatic per family and pt. since April 26. Pt. has hx of bipolar d/o with similar psychotic symptoms 5 years ago. Assessment What has happened this shift: Pt is active on the unit and sits in the community room watching TV. She is observed interacting with peers and smiling and laughing occasionally. She denies SI/HI/AH/VH at this time although she states she is still feeling depressed but hopeful. She is cooperative with 1:1 assessment and takes her HS medications without issue. S/I, H/I: Denies. A/VH: Denies. Sleep: see sleep assessment ADL's: Independent Group attendance: Yes Were meds taken: yes Any med S/E None reported, none observed Mental Status Exam Appearance: Clean, WNL Eye contact: direct Behavior: cooperative, social Speech: Poverty of speech Mood: jovial Affect: Congruent with mood. Thought process: linear Thought Content: WNL Cognition: A+OX4 Insight: fair Judgment: fair Interventions PRN's used: None Therapeutic interventions: Maintained a safe and supportive milieu, provided clear and simple instructions, encouraged independent performance of ADLs, monitored behaviors and need for intervention, provided positive reassurance as needed; Q15 min safety checks. Restraints/seclusion/emergency medication: N/A Justification of Continued Inpatient Treatment: Patient requires interruption of current crisis, medication adjustments, and a safe and supportive environment.
[2020-05-13] MEDS: sertraline 50mg tablet PO SCH (07:08)
[2020-05-13] MEDS: lithium carbonate 450mg CR tablet PO SCH ×2 (07:08→20:29)
[2020-05-13 07:34] VITALS: BP 118/75
--- NOTE | 2020-05-13 10:00 | NUR ---
Group Therapy: Process Group This Clinicians goals for this process group were as follows: (1) Ask scaling questions about patients current anxiety, depression, and irritability symptoms as a check-in. (2) Share psychoeducation about emotional relaxation techniques with patients, including information on: mindfulness, meditation controlled breathing, progressive muscle relaxation, guided visualization. (3) Model and practice controlled breathing, progressive muscle relaxation, and guided visualization with patients within the group milieu. (4) Process patients comments and reflections on the before-mentioned activities after they have participated in them. Patient identified experiencing the following levels of anxiety, depression, and anger/irritability while present in the group milieu (0-low; 10-High). Anxiety: 10/16 Depression: 11/15 Anger/irritability: 10/16 Patient presented as properly oriented x4 during the process group. Patient was dressed in nondescript, personal clothing that were appropriate within the milieu. Psychomotor activity was unremarkable. Patient's thought content was clear, and concrete. Patient's thought process was clear, coherent, and linear. This Clinician did not observe Patient responding to any internal stimuli during session. The rate, latency, and tone of Patients speech was within normal limits. Patient maintained regular eye contact with this Clinician. Patient presented in calm euthymic mood, with congruent affect during the process group. Patient presented as open, cooperative, verbally engaged when addressed by this Clinician, and nonobtrusive within the group milieu. During her initial check-in with this Clinician regarding her levels of anxiety, depression, and anger/irritability, Patient reported that she was having some, "Racing thoughts," though she did not elaborate on the meaning of this statement during the process group. This Clinician observed Patient engaging in controlled breathing, and progressive muscle relaxation techniques during the process group. She interacted appropriately with her peers. Omi Marina MA, LIDIA Addendum: 05/17/20 at 0856 by Omi Marina Amended: Links added.
--- NOTE | 2020-05-13 16:25 | NUR ---
Nursing Progress Note: Legal hold: 5250 Expires 05/22 Client on involuntary status for GD Report received from nurse with use of SBAR: TARI Caballero Why are they here: Pt. is on a 5150 for acute psychosis and grave disability. Strong auditory hallucinations with delusions of hell and demons. Patient with recent diagnosis of COVID with positive testing on April 19 per reported hx, and has been asymptomatic per family and pt. since April 26. Pt. has hx of bipolar d/o with similar psychotic symptoms 5 years ago. Assessment What has happened this shift: Received patient sleeping at shift change no distress noted. Pt woke prior to breakfast reporting she had another good night sleep, but did have bad dreams. Pt was cooperative with medication and care. Pt asked if her Zoloft could be increased I am still feeling depressed. I am usually an extravert. This is not my normal self. Pt continues to a little paranoid, pt was worried someone would walk into the shower while she was in there; even though she was reassured several times the door was locked. Pt attended both group session and spent most of the shift out of her room socializing with peers. Pt is observed smiling and conversing appropriately. No delusional statements made this shift. S/I, H/I: Denies both. A/VH: Denies both. Sleep: 8 hours per Sleep Assessment. Pt. reports she slept well, but had bad dreams. ADL's: Independent. Showered today. Group attendance: Yes both AM/PM Were meds taken: Yes, without incident. Any med S/E: None reported or observed. Mental Status Exam Appearance: Neat and appropriately dressed in personal attire. Eye contact: Good Behavior: Cooperative and calm. Attends group and is visible on unit socializing and interacting with peers. Speech: Soft, clear, normal rate/rhythm. Mood: Getting better. Affect: Blunted, with increased brightening. Thought process: Some paranoia, but mostly linear Thought Content: Situational Cognition: A&O X4 Insight: Poor Judgment: Fair Interventions PRN's used: None Therapeutic interventions: Maintained a safe and therapeutic environment, provided clear and simple instructions, provided active listening and positive encouragement, maintained Q 15min safety checks. Restraints/seclusion/emergency medication: N/A Justification of Continued Inpatient Treatment: Per CAROL Zelaya, pt. continues to require a safe and supportive environment and will continue to be monitored over the next few days before any additional medication changes are made.
[2020-05-13 20:00] VITALS: BP 116/77
[2020-05-13] MEDS: OLANZAPINE 5 MG TABLET PO SCH (20:28)
[2020-05-13] MEDS: hydrOXYzine 25 MG tablet PO SCH (20:29)
--- NOTE | 2020-05-14 01:18 | NUR ---
Nursing Progress Note: Legal hold: 5250 Client on involuntary status for GD Report received from Maryjane MARC with use of SBAR. Why are they here: 29 y.o. female on 0 for acute psychosis and grave disability. Strong auditory hallucinations with delusions of hell and demons. Patient with recent diagnosis of COVID with positive testing on April 19 per reported hx and has been asymptomatic per family and pt. since April 26. Pt. has hx of bipolar d/o with similar psychotic symptoms 5 years ago. Assessment What has happened this shift: Pt is observed socializing in the community room with peers. She watches TV and eats snack. She is also seen doing lunges in the hallway for exercise. PT states she is feeling "better" but "still a little paranoid" about other people including her family. PT states she knows her parents are in town but she feels she isn't ready to see them yet because she doesn't want them to "see her like this." She does say she feels good knowing she has their support but is still very unsure about what she should do in regards to going back to school. She is cooperative with 1:1 assessment and takes her HS medications without issue. S/I, H/I: Denies. A/VH: Denies. Sleep: see sleep assessment ADL's: Independent Group attendance: Yes Were meds taken: yes Any med S/E None reported, none observed Mental Status Exam Appearance: Clean, WNL Eye contact: direct Behavior: cooperative, social Speech: Poverty of speech Mood: jovial Affect: bland Thought process: linear Thought Content: WNL Cognition: A+OX4 Insight: fair Judgment: fair Interventions PRN's used: None Therapeutic interventions: Maintained a safe and supportive milieu, provided clear and simple instructions, encouraged independent performance of ADLs, monitored behaviors and need for intervention, provided positive reassurance as needed; Q15 min safety checks. Restraints/seclusion/emergency medication: N/A Justification of Continued Inpatient Treatment: Patient requires interruption of current crisis, medication adjustments, and a safe and supportive environment.
[2020-05-14 07:45] VITALS: BP 110/68
[2020-05-14] MEDS: lithium carbonate 450mg CR tablet PO SCH ×2 (07:53→21:18)
[2020-05-14] MEDS: sertraline 50mg tablet PO SCH (07:53)
--- NOTE | 2020-05-14 14:10 | NUR ---
Nursing Progress Note: Legal hold: 5250 Expires 05/22 Client on involuntary status for GD Report received from nurse with use of SBAR: TARI Philippe Why are they here: Pt. is on a 5150 for acute psychosis and grave disability. Strong auditory hallucinations with delusions of hell and demons. Patient with recent diagnosis of COVID with positive testing on April 19 per reported hx, and has been asymptomatic per family and pt. since April 26. Pt. has hx of bipolar d/o with similar psychotic symptoms 5 years ago. Assessment What has happened this shift: Received patient sleeping at shift change, no distress noted. Pt wakes in a pleasant mood and states she is sleeping better. Compliant with medication and care. During 1:1 pt states she is trying to put herself out there. Sometimes I feel fake because I am trying to so hard to make conversation. Pt states her racing thoughts have decreased, but she is still having some issues with trust, even with her parents. Pt states I know they are delusional thoughts, but then I am not sure. Pt refers to thoughts of her housemate wanting to sell her into sex trafficking and were my parents involved. From this writers observation pt appears she is enjoying being social, but on the inside she states I am still not myself. Pt denies SI/HI/AH/VH. Pt continues to endorse depression, but states it is getting better. Patients Zoloft was increased to 100mg daily. Pt spoke with parents today conversation appeared to go well. Pt was bright and talkative, no negative talk was noted. S/I, H/I: Denies both. A/VH: Denies both. Sleep: 8 hours per Sleep Assessment. Reports I slept good. ADL's: Independent. Showered today. Group attendance: No scheduled groups today. Were meds taken: Yes, without incident. Any med S/E: None reported or observed. Mental Status Exam Appearance: Neat and appropriately dressed in personal attire. Eye contact: Good Behavior: Cooperative and calm. Visible on unit socializing and interacting with peers. Talked with parents. Speech: Soft, clear, normal rate/rhythm. Mood: Improving Affect: Blunted, with increased brightening. Thought process: Some paranoia/delusional Thought Content: Getting better. Cognition: A&O X4 Insight: Poor Judgment: Fair Interventions PRN's used: None Therapeutic interventions: Maintained a safe and therapeutic environment, provided clear and simple instructions, provided active listening and positive encouragement, maintained Q 15min safety checks. Restraints/seclusion/emergency medication: N/A Justification of Continued Inpatient Treatment: Per CAROL Zelaya, pt. continues to require a safe and supportive environment and will continue to be monitored over the next few days before any additional medication changes are made.
[2020-05-14 19:00] VITALS: BP 119/73
[2020-05-14] MEDS: hydrOXYzine 25 MG tablet PO SCH (21:18)
[2020-05-14] MEDS: OLANZAPINE 5 MG TABLET PO SCH (21:18)
--- NOTE | 2020-05-14 23:23 | NUR ---
Nursing Progress Note: Legal hold: 5250 Client on involuntary status for GD Report received from Maryjane MARC with use of SBAR. Why are they here: 29 y.o. female on 5149 for acute psychosis and grave disability. Strong auditory hallucinations with delusions of hell and demons. Patient with recent diagnosis of COVID with positive testing on April 19 per reported hx and has been asymptomatic per family and pt. since April 26. Pt. has hx of bipolar d/o with similar psychotic symptoms 5 years ago. Assessment What has happened this shift: Pt is active on the unit and is seen socializing with peers although she looks slightly apprehensive. She returns to her room early and lays down. She expresses that she feels like she is "trying hard" and doesn't always feel like having a lot of conversations. She requests her HS medications earlier than usual. She is cooperative with 1:1 assessment and takes her medications without issue. Electrical Instrument Technician reassures pt and talks to her about how needing some personal time and space is normal and for her to not feel badly about this. She admits that being here is very different for her but she does feel like she is improving. S/I, H/I: Denies. A/VH: Denies. Sleep: see sleep assessment ADL's: Independent Group attendance: Yes Were meds taken: yes Any med S/E None reported, none observed Mental Status Exam Appearance: Clean, WNL Eye contact: direct Behavior: cooperative, social Speech: Poverty of speech Mood: jovial Affect: bland Thought process: linear Thought Content: WNL Cognition: A+OX4 Insight: fair Judgment: fair Interventions PRN's used: None Therapeutic interventions: Maintained a safe and supportive milieu, provided clear and simple instructions, encouraged independent performance of ADLs, monitored behaviors and need for intervention, provided positive reassurance as needed; Q15 min safety checks. Restraints/seclusion/emergency medication: N/A Justification of Continued Inpatient Treatment: Patient requires interruption of current crisis, medication adjustments, and a safe and supportive environment.
[2020-05-15 07:48] VITALS: BP 119/77
[2020-05-15] MEDS: lithium carbonate 450mg CR tablet PO SCH ×2 (08:00→20:17)
[2020-05-15] MEDS: sertraline 50mg tablet PO SCH (08:00)
--- NOTE | 2020-05-15 17:12 | NUR ---
Nursing Progress Note: Legal hold: 5250 Expires 05/22 Client on involuntary status for GD Report received from nurse with use of SBAR: TARI Philippe Why are they here: Pt. is on a 5150 for acute psychosis and grave disability. Strong auditory hallucinations with delusions of hell and demons. Patient with recent diagnosis of COVID with positive testing on April 19 per reported hx, and has been asymptomatic per family and pt. since April 26. Pt. has hx of bipolar d/o with similar psychotic symptoms 5 years ago. Assessment What has happened this shift: Pt in her room until breakfast. She was up for all her meals. Showered in the AM attended group and played the [employer] for awhile in the hallway. Pt smiling, calm and cooperative with treatment. Meds are being adjusted. S/I, H/I: Denies both. A/VH: Denies both. Sleep: Sleeps at night per pt report ADL's: Independent Group attendance: Yes Were Meds taken: Yes, without incident. Any med S/E: None reported or observed. Mental Status Exam Appearance: Neat and appropriately dressed in personal attire. Eye contact: Good Behavior: Cooperative and calm. Visible on unit socializing and interacting with peers. Talked with parents. Speech: Soft, clear, normal rate/rhythm. Mood: Improving Affect: Blunted, with increased brightening. Thought process: Some paranoia/delusional Thought Content: Getting better. Cognition: A&O X4 Insight: Poor Judgment: Fair Interventions PRN's used: None Therapeutic interventions: Provided therapeutic communication and assisted with obtaining sheet music for her to play the guitar, medication administration/education/monitoring, maintained Q 15min safety checks. Restraints/seclusion/emergency medication: N/A Justification of Continued Inpatient Treatment: Per CAROL Zelaya, pt. continues to require a safe and supportive environment and will continue to be monitored over the next few days before any additional medication changes are made.
[2020-05-15 19:00] VITALS: BP 131/85
[2020-05-15] MEDS: hydrOXYzine 25 MG tablet PO SCH (20:17)
[2020-05-15] MEDS: OLANZAPINE 5 MG TABLET PO SCH (20:17)
--- NOTE | 2020-05-16 01:34 | NUR ---
Nursing Progress Note: Legal hold: 5250 Client on involuntary status for GD Report received from Ro MARC with use of SBAR. Why are they here: 29 y.o. female on 5150 for acute psychosis and grave disability. Strong auditory hallucinations with delusions of hell and demons. Patient with recent diagnosis of COVID with positive testing on April 19 per reported hx and has been asymptomatic per family and pt. since April 26. Pt. has hx of bipolar d/o with similar psychotic symptoms 5 years ago. Assessment What has happened this shift: Pt is coloring in community room at shift change with peers. She eats snack and then requests her HS medications. Pt states her day went well and that she spent a lot of the day coloring, which she likes. She states she is still having some paranoid thoughts and the feeling of racing thoughts. She does say she feels like this has been improving, but they are still there. She says she talked to her mother and sister today which went well, she appears to brighten up when she speaks about her family. She sits on her bed and reads the bible until she falls asleep. S/I, H/I: Denies. A/VH: Denies. Sleep: see sleep assessment ADL's: Independent Group attendance: Yes Were meds taken: yes Any med S/E None reported, none observed Mental Status Exam Appearance: Clean, WNL Eye contact: direct Behavior: cooperative, social Speech: Poverty of speech Mood: jovial Affect: bland Thought process: linear Thought Content: WNL Cognition: A+OX4 Insight: fair Judgment: fair Interventions PRN's used: None Therapeutic interventions: Maintained a safe and supportive milieu, provided clear and simple instructions, encouraged independent performance of ADLs, monitored behaviors and need for intervention, provided positive reassurance as needed; Q15 min safety checks. Restraints/seclusion/emergency medication: N/A Justification of Continued Inpatient Treatment: Patient requires interruption of current crisis, medication adjustments, and a safe and supportive environment.
[2020-05-16 08:00] VITALS: BP 131/85
[2020-05-16] MEDS: sertraline 50mg tablet PO SCH (08:25)
[2020-05-16] MEDS: lithium carbonate 450mg CR tablet PO SCH ×2 (08:25→20:04)
--- NOTE | 2020-05-16 16:39 | NUR ---
Nursing Progress Note: Legal hold: 5250 Expires 05/22 Client on involuntary status for GD Report received from nurse with use of SBAR: TARI Philippe Why are they here: Pt. is on a 5150 for acute psychosis and grave disability. Strong auditory hallucinations with delusions of hell and demons. Patient with recent diagnosis of COVID with positive testing on April 19 per reported hx, and has been asymptomatic per family and pt. since April 26. Pt. has hx of bipolar d/o with similar psychotic symptoms 5 years ago. Assessment What has happened this shift: Patient was asleep at change of shift and up before breakfast. Patient is calm and cooperative. Patient took a long nap in the morning and then played board games with peers in the afternoon for a couple of hours. Patient denies Suicidal/homicidal ideation. Patient denies audio/visual hallucinations. Patient has not said anything delusional today when RN speaking to her. Patient appears to be laughing and appropriate with peers. S/I, H/I: Denies both. A/VH: Denies both. Sleep: Long morning nap ADL's: Independent Group attendance: No group today Were Meds taken: Yes, without incident. Any med S/E: None reported or observed. Mental Status Exam Appearance: Neat and appropriately dressed in personal attire. Eye contact: Good Behavior: Cooperative and calm. Visible on unit socializing and interacting with peers. Talked with parents. Speech: Soft, clear, normal rate/rhythm. Mood: Pleasant Affect: Flat Thought process: Thought Content: Patient wants to get better Cognition: A&O X4 Insight: Poor Judgment: Fair Interventions PRN's used: None Therapeutic interventions: Provided therapeutic communication and assisted with obtaining sheet music for her to play the [employer], medication administration/education/monitoring, maintained Q 15min safety checks. Restraints/seclusion/emergency medication: N/A Justification of Continued Inpatient Treatment: Per CAROL Zelaya, pt. continues to require a safe and supportive environment and will continue to be monitored over the next few days before any additional medication changes are made.
[2020-05-16 19:00] VITALS: BP 111/66
[2020-05-16] MEDS: OLANZAPINE 5 MG TABLET PO SCH (20:04)
[2020-05-16] MEDS: hydrOXYzine 25 MG tablet PO SCH (20:05)
--- NOTE | 2020-05-17 02:01 | NUR ---
Nursing Progress Note: Legal hold: 5250 Expires 05/22 Client on involuntary status for GD Report received from nurse with use of SBAR: TARI Philippe Why are they here: Pt. is on a 5150 for acute psychosis and grave disability. Strong auditory hallucinations with delusions of hell and demons. Patient with recent diagnosis of COVID with positive testing on April 19 per reported hx, and has been asymptomatic per family and pt. since April 26. Pt. has hx of bipolar d/o with similar psychotic symptoms 5 years ago. Assessment What has happened this shift: Patient up in group room sitting at a table with several other Pts coloring. Pleasant during introduction good eye contact. Patient denies Suicidal/homicidal ideation. Patient denies audio/visual hallucinations. She describes her depression as "just a little bit, much better than when I was admitted here" Pt says the symptoms of her depression are that she feels empty and unable to move very much" Per pt she was diagnosed 5 years ago as bipolar. She does not believe she had any symptoms before that "it hit me all of a sudden" Pt pleasant and cooperative with care took all meds when to sleep. S/I, H/I: Denies both. A/VH: Denies both. Sleep: Asleep ADL's: Independent Group attendance: NA Were Meds taken: Yes, without incident. Any med S/E: None reported or observed. Mental Status Exam Appearance: Neat and appropriately dressed in personal attire. Eye contact: Good Behavior: Cooperative and calm. Visible on unit socializing and interacting with peers. Speech: Soft, clear, normal rate/rhythm. Mood: Pleasant Affect: Flat Thought process: Linear Thought Content: Patient wants to get better Cognition: A&O X4 Insight: Fair Judgment: Fair Interventions PRN's used: None Therapeutic interventions: Provided therapeutic communication, medication administration/education/monitoring, maintained Q 15min safety checks. Restraints/seclusion/emergency medication: N/A Justification of Continued Inpatient Treatment: CAROL Bell, pt. continues to require a safe and supportive environment and will continue to be monitored over the next few days before any additional medication changes are made.
[2020-05-17 07:11] VITALS: BP 123/76
[2020-05-17] MEDS: sertraline 50mg tablet PO SCH (08:22)
[2020-05-17] MEDS: OLANZapine 2.5MG tablet PO SCH (08:23)
[2020-05-17] MEDS: lithium carbonate 450mg CR tablet PO SCH ×2 (08:23→20:30)
--- NOTE | 2020-05-17 10:00 | NUR ---
Group Therapy: Process Group This Clinicians goal for this process group were as follows: (1) Introduce and provide psychoeducation on Freeman ABC method. (2) Practice working through Freeman ABC method using examples provided by this Clinician. (3) Encourage Patients to process some of their own reoccurring situations utilizing Freeman ABC methodology. (4) Process Clients thoughts and reflections on this topic within the group milieu. Patient identified experiencing the following levels of anxiety, depression, and anger/irritability while present in the group milieu (0-low; 10-High). Anxiety: 10 Depression: 10 Anger/irritability: 10 Patient presented as properly oriented x4 during the process group. Patient was dressed in nondescript, personal clothing that were appropriate within the milieu. Psychomotor activity was unremarkable. Patient's thought content was clear, and concrete. Patient's thought process was clear, coherent, and linear. This Clinician did not observe Patient responding to any internal stimuli during session. The rate, latency, and tone of Patients speech was within normal limits. Patient maintained regular eye contact with this Clinician. Patient presented in calm euthymic mood, with congruent affect during the process group. Patient presented as open, cooperative, verbally engaged, and nonobtrusive within the group milieu. Patient reported experiencing heightened symptoms of depression during her initial check-in with this Clinician. She reported that these symptoms were making her feel, "Tired, and empty," which made her think thoughts about her need to get, "Rest." Patient was an active participant during the process group discussion on Freeman REIS ABC method, and was able to identify how changing irrational/unhelpful/unbalanced beliefs about oneself, the world, and the future could reduce the duration, frequency, and intensity of unwanted emotional consequences. More specifically she identified on one occasion that a positive/helpful/balanced belief that she could think about herself to reduce the acuity of unwanted emotional consequences was to, "Give myself more nany," when she was experiencing challenging times in her life. Omi Marina MA, ELECTRONICS DESIGN ENGINEER Addendum: 05/17/20 at 1157 by Omi WHITE Amended: Links added.
--- NOTE | 2020-05-17 14:49 | NUR ---
Nursing Progress Note: Legal hold: 5250 Expires 05/22 Client on involuntary status for GD Report received from nurse with use of SBAR: TARI Philippe Why are they here: Pt. is on a 5150 for acute psychosis and grave disability. Strong auditory hallucinations with delusions of hell and demons. Patient with recent diagnosis of COVID with positive testing on April 19 per reported hx, and has been asymptomatic per family and pt. since April 26. Pt. has hx of bipolar d/o with similar psychotic symptoms 5 years ago. Assessment What has happened this shift: Patient was asleep at change of shift and up before breakfast. Patient states she is not suicidal but she feels very depressed. Patient states she feels hallow. Patient states it is hard to be present when she feels this way. Patient is hoping with the anti-depressant medication that she will feel better. Patient is still wary of her roommates at home and doesn't think she can go back there to live. Patient then stated this might be part of my delusions. Patient has some insight. RN spoke to patient's father later in the morning who stated her roommates are chen but they will be taking the patient back to [place] when she gets discharged. Patient was social today and went to group. S/I, H/I: Denies both. A/VH: Denies both. Sleep: Cat Nap ADL's: Independent Group attendance: Yes Were Meds taken: Yes, without incident. Any med S/E: None reported or observed. Mental Status Exam Appearance: Neat and appropriately dressed in personal attire. Eye contact: Good Behavior: Cooperative and calm. Visible on unit socializing and interacting with peers. Talked with parents. Speech: Soft, clear, normal rate/rhythm. Mood: Pleasant Affect: Depressed at times. Thought process: Linear Thought Content: Worried about still being depressed and feeling hallow Cognition: A&O X4 Insight: Fair Judgment: Fair Interventions PRN's used: None Therapeutic interventions: Provided therapeutic communication and assisted with obtaining sheet music for her to play the guitar, medication administration/education/monitoring, maintained Q 15min safety checks. Restraints/seclusion/emergency medication: N/A Justification of Continued Inpatient Treatment: Per CAROL Zelaya, pt. continues to require a safe and supportive environment and will continue to be monitored over the next few days before any additional medication changes are made.
[2020-05-17 19:29] VITALS: BP 113/69
[2020-05-17] MEDS: hydrOXYzine 25 MG tablet PO SCH (20:29)
[2020-05-17] MEDS: OLANZAPINE 5 MG TABLET PO SCH (20:30)
--- NOTE | 2020-05-18 02:55 | NUR ---
Nursing Progress Note: Legal hold: 5250 Expires 05/22 Client on involuntary status for GD Report received from nurse with use of SBAR: TARI Philippe Why are they here: Pt. is on a 5150 for acute psychosis and grave disability. Strong auditory hallucinations with delusions of hell and demons. Patient with recent diagnosis of COVID with positive testing on April 19 per reported hx, and has been asymptomatic per family and pt. since April 26. Pt. has hx of bipolar d/o with similar psychotic symptoms 5 years ago. Assessment What has happened this shift: Pt up in group room socializing with other pts at start of shift. Pt requested medications early so she could go to bed early. Pt said she is still depressed but getting better. Talked about discharge back to [place] with parents. Pt was going to school here and said she is going to look into continuing online. S/I, H/I: Denies both. A/VH: Denies both. Sleep: Asleep at this time ADL's: Independent Group attendance: Yes Were Meds taken: Yes, without incident. Any med S/E: None reported or observed. Mental Status Exam Appearance: Neat and appropriately dressed in personal attire. Eye contact: Good Behavior: Cooperative and calm. socializing and interacting with peers. Speech: Soft, clear, normal rate/rhythm. Mood: Pleasant Affect: Depressed at times. Thought process: Linear Thought Content: Continuing school Cognition: A&O X4 Insight: Fair Judgment: Fair Interventions PRN's used: None Therapeutic interventions: Provided therapeutic communication and assisted with obtaining sheet music for her to play the [employer], medication administration/education/monitoring, maintained Q 15min safety checks. Restraints/seclusion/emergency medication: N/A Justification of Continued Inpatient Treatment: Per CAROL Zelaya, pt. continues to require a safe and supportive environment and will continue to be monitored over the next few days before any additional medication changes are made.
[2020-05-18 07:11] VITALS: BP 117/76
[2020-05-18] MEDS: sertraline 50mg tablet PO SCH (08:25)
[2020-05-18] MEDS: lithium carbonate 450mg CR tablet PO SCH (08:26)
[2020-05-18] MEDS: OLANZapine 2.5MG tablet PO SCH (08:26)
--- NOTE | 2020-05-18 11:08 | NUR ---
Reassessment: PO 75-100% meals. No nutrition concerns at this time. Will continue to monitor. Rec: 1. continue regular diet 2. bowel care per rx 3. wt per rx Addendum: 05/18/20 at [address] Amended: Links added.
--- NOTE | 2020-05-18 17:30 | NUR ---
Nursing Progress Note: Legal hold: 5250 Expires 05/22 Client on involuntary status for GD Report received from TARI Caballero with use of SBAR. Why are they here: Pt. is on a 5150 for acute psychosis and grave disability. Strong auditory hallucinations with delusions of hell and demons. Patient with recent diagnosis of COVID with positive testing on April 19 per reported hx, and has been asymptomatic per family and pt. since April 26. Pt. has hx of bipolar d/o with similar psychotic symptoms 5 years ago. Assessment What has happened this shift: Received pt sleeping at shift change. Patient takes medications after breakfast without incident. Patient states concerns that she will be unable to continue going to [employer], and will be discharging home with her mother who flew in from [place]. Patient does state that she may be able to continue an online portion of the semester, and this would suffice. Patient was playing board games with peer in the afternoon. S/I, H/I: Denies both. A/VH: Denies both. Sleep: Short nap. ADL's: Independent Group attendance: Yes Were Meds taken: Yes, without incident. Any med S/E: None reported or observed. Mental Status Exam Appearance: Well-groomed in casual clothing. Eye contact: Good Behavior: Cooperative and calm. Visible on unit socializing and interacting with peers. Talked with parents on the phone. Speech: Soft, clear, normal rate/rhythm. Mood: Euthymic. Affect: Pleasant. Thought process: Linear Thought Content: Upset that she cannot continue in [employer], but may be able to continue online when she goes to live with her family. Cognition: A&O X4 Insight: Fair Judgment: Fair Interventions PRN's used: None Therapeutic interventions: Provided therapeutic communication and assisted with obtaining sheet music for her to play the [employer], medication administration/education/monitoring, maintained Q 15min safety checks. Restraints/seclusion/emergency medication: N/A Justification of Continued Inpatient Treatment: Per CAROL Zelaya, pt. continues to require a safe and supportive environment and will continue to be monitored over the next few days before any additional medication changes are made.
[2020-05-18 19:31] VITALS: BP 108/72
[2020-05-18] MEDS: OLANZAPINE 5 MG TABLET PO SCH (20:24)
[2020-05-18] MEDS: hydrOXYzine 25 MG tablet PO SCH (20:25)
[2020-05-18] MEDS: lithium carbonate 300mg SR tablet (LithoBID) PO SCH (20:25)
--- NOTE | 2020-05-18 23:18 | NUR ---
Nursing Progress Note: Legal hold: 5250 Expires 05/22 Client on involuntary status for GD Report received from TARI Wesley with use of SBAR. Why are they here: Pt. is on a 5150 for acute psychosis and grave disability. Strong auditory hallucinations with delusions of hell and demons. Patient with recent diagnosis of COVID with positive testing on April 19 per reported hx, and has been asymptomatic per family and pt. since April 26. Pt. has hx of bipolar d/o with similar psychotic symptoms 5 years ago. Assessment What has happened this shift: Pt was socializing with others at change of shift. She is in a pleasant mood, states her parents have arrived in town and she plans to return home with them when she is discharged. Pt states she is doing better and had a good day in groups today. S/I, H/I: Denies both. A/VH: Denies both. Sleep: See sleep hours ADL's: Independent Group attendance: Yes Were Meds taken: Yes, without incident. Any med S/E: None reported or observed. Mental Status Exam Appearance: Well-groomed in casual clothing. Eye contact: Good Behavior: Cooperative and calm. Visible on unit socializing and interacting with peers. Talked with parents on the phone. Speech: Soft, clear, normal rate/rhythm. Mood: Euthymic. Affect: Pleasant. Thought process: Linear Thought Content: talking about returning home with her family Cognition: A&O X4 Insight: Fair Judgment: Fair Interventions PRN's used: None Therapeutic interventions: Provided therapeutic communication and assisted with obtaining sheet music for her to play the [employer], medication administration/education/monitoring, maintained Q 15min safety checks. Restraints/seclusion/emergency medication: N/A Justification of Continued Inpatient Treatment: Per CAROL Zelaya, pt. continues to require a safe and supportive environment and will continue to be monitored over the next few days before any additional medication changes are made.
[2020-05-19 07:59] VITALS: BP 110/68
[2020-05-19] MEDS: lithium carbonate 300mg SR tablet (LithoBID) PO SCH ×2 (08:29→20:24)
[2020-05-19] MEDS: sertraline 50mg tablet PO SCH (08:29)
[2020-05-19] MEDS: OLANZapine 2.5MG tablet PO SCH (08:29)
--- NOTE | 2020-05-19 17:39 | NUR ---
Nursing Progress Note: Legal hold: 5250 Expires 05/22 Client on involuntary status for GD Report received from TARI Caballero with use of SBAR. Why are they here: Pt. is on a 5150 for acute psychosis and grave disability. Strong auditory hallucinations with delusions of hell and demons. Patient with recent diagnosis of COVID with positive testing on April 19 per reported hx, and has been asymptomatic per family and pt. since April 26. Pt. has hx of bipolar d/o with similar psychotic symptoms 5 years ago. Assessment What has happened this shift: Received pt sleeping at shift change. Patient attends breakfast and takes her medications without incident. Patient states that she is feeling slightly depressed due to her going back home with her parents. She reports feeling slightly depressed because some people have made it possible for her to go to school by donating money to attend, and now she is going to be back home, and feels embarrassed about this. Patient states that she doesnt feel like herself, she is normally an extrovert and joyful. Patient states that she has brief periods of time feeling joyful, but not the majority of time. Patient does report some ongoing paranoia regarding her roommate and the people she rented the house from that they had something to do with her being here. S/I, H/I: Denies both. A/VH: Denies both. Sleep: 8 hrs NOC. Napped after breakfast. ADL's: Independent Group attendance: Yes Were Meds taken: Yes, without incident. Any med S/E: None reported or observed. Mental Status Exam Appearance: Clean and neat in casual clothing. Eye contact: Good Behavior: Pleasant and cooperative. Talking to family on the telephone. Speech: Soft, clear, normal rate/rhythm. Mood: Slightly depressed. Affect: Pleasant. Thought process: Linear Thought Content: Embarrassed and slightly depressed over going home without success in school. Cognition: A&O X4 Insight: Fair Judgment: Fair Interventions PRN's used: None Therapeutic interventions: Provided therapeutic communication and assisted with obtaining sheet music for her to play the guitar, medication administration/education/monitoring, maintained Q 15min safety checks. Restraints/seclusion/emergency medication: N/A Justification of Continued Inpatient Treatment: Per CAROL Zelaya, pt. continues to require a safe and supportive environment and will continue to be monitored over the next few days before any additional medication changes are made.
[2020-05-19 19:24] VITALS: BP 129/78
[2020-05-19] MEDS: hydrOXYzine 25 MG tablet PO SCH (20:24)
[2020-05-19] MEDS: OLANZAPINE 5 MG TABLET PO SCH (20:24)
--- NOTE | 2020-05-19 23:21 | NUR ---
Nursing Progress Note: Legal hold: 5250 Expires 05/22 Client on involuntary status for GD Report received from TARI Obrien with use of SBAR. Why are they here: Pt. is on a 5150 for acute psychosis and grave disability. Strong auditory hallucinations with delusions of hell and demons. Patient with recent diagnosis of COVID with positive testing on April 19 per reported hx, and has been asymptomatic per family and pt. since April 26. Pt. has hx of bipolar d/o with similar psychotic symptoms 5 years ago. Assessment What has happened this shift: Pt was in the group room at change of shift playing board games with peers. Pt states she is feeling depressed about going home because she wanted to complete her [employer] program and states she feels she let people down by not completing it. S/I, H/I: Denies both. A/VH: Denies both. Sleep: 8 hrs NOC. Napped after breakfast. ADL's: Independent Group attendance: see sleep hours Were Meds taken: Yes Any med S/E: None reported or observed. Mental Status Exam Appearance: Clean and neat in casual clothing. Eye contact: Good Behavior: Pleasant and cooperative. . Speech: Soft, clear, normal rate/rhythm. Mood: Slightly depressed. Affect: Pleasant. Thought process: Linear Thought Content: Embarrassed and slightly depressed over going home without success in school. Cognition: A&O X4 Insight: Fair Judgment: Fair Interventions PRN's used: None Therapeutic interventions: Provided therapeutic communication and assisted with obtaining sheet music for her to play the guitar, medication administration/education/monitoring, maintained Q 15min safety checks. Restraints/seclusion/emergency medication: N/A Justification of Continued Inpatient Treatment: Per CAROL Zelaya, pt. continues to require a safe and supportive environment and will continue to be monitored over the next few days before any additional medication changes are made.
[2020-05-20 07:36] VITALS: BP 111/75
[2020-05-20] MEDS: OLANZapine 2.5MG tablet PO SCH (07:40)
[2020-05-20] MEDS: sertraline 50mg tablet PO SCH (07:40)
[2020-05-20] MEDS: lithium carbonate 300mg SR tablet (LithoBID) PO SCH ×2 (07:41→20:20)
--- NOTE | 2020-05-20 14:42 | NUR ---
DISCHARGE PLANNING Met with Cris to discuss discharge tomorrow. She reported she is comfortable with doing so. She noted she still feels like she has some progress to make. Encouraged her that she will likely make more progress being with her family and around people she is comfortable with. Scheduled her follow up appt with Dr Hilario for 05/31/20 at 1:30 PM. Spoke to her parents on the phone (ph# [phone]) to discuss discharge tomorrow. They reported they talked to Cris last night about discharge and were encouraged that she wants to discharge. Informed them of follow up appt with Dr Hilario. They plan on staying with Cris in [facility] for a couple more days and then flying to [place] early next week. They requested her medications get called in or sent to [facility] on [address]. 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 LIDIA Serrano
--- NOTE | 2020-05-20 17:40 | NUR ---
Nursing Progress Note: Legal hold: 5250 Expires 05/22 Client on involuntary status for GD Report received from TARI Caballero with use of SBAR. Why are they here: Pt. is on a 5150 for acute psychosis and grave disability. Strong auditory hallucinations with delusions of hell and demons. Patient with recent diagnosis of COVID with positive testing on April 19 per reported hx, and has been asymptomatic per family and pt. since April 26. Pt. has hx of bipolar d/o with similar psychotic symptoms 5 years ago. Assessment What has happened this shift: Received pt. asleep at change of shift. Pt. awoke shortly after. Pt. took medications and ate breakfast. Pt. ate all meals in the community room. 1:1 done at bedside. Pt. denies SI/HI, A/V hallucinations. Pt. reports that she continues to have an empty feeling, rating her depression at 4/10. Pt. states that she feels social anxiety and that this is not normal for her because she is a very outgoing person. Pt. reports feeling disappointed in herself for not finishing her schooling this year. Feeling like she disappointed people, but states, I know that isnt true. Pt. states this is the second time a mental health crisis prevented her from finishing something she set out to accomplish. Pt. reports she is looking forward to going back to [place] to see her sister who is . Pt. seen out in milieu socializing with peers and staff. Pt. overheard encouraging other patients. Pt. playing guitar and singing with another pt. in the evening. S/I, H/I: Denies both. A/VH: Denies both. Sleep: Pt. napped approx. an hour. ADL's: Independent Group attendance: Yes Were Meds taken: Yes Any med S/E: Denies Mental Status Exam Appearance: Clean and neat in casual clothing. Eye contact: Good Behavior: Pleasant and cooperative, participating in groups and socializing with peers and staff. Speech: Soft, clear, normal rate/rhythm. Mood: Euthymic with some depression Affect: Bright Thought process: Linear Thought Content: Relocating back to [place]. Disappointment at not finishing school. Cognition: A&O X4 Insight: Fair Judgment: Fair Interventions PRN's used: None Therapeutic interventions: Provided therapeutic communication and assisted with obtaining sheet music for her to play the guitar, medication administration/education/monitoring, maintained Q 15min safety checks. Restraints/seclusion/emergency medication: N/A Justification of Continued Inpatient Treatment: CAROL Bell, pt. continues to require a safe and supportive environment and will continue to be monitored over the next few days before any additional medication changes are made.
[2020-05-20 19:00] VITALS: BP 110/65
[2020-05-20] MEDS: hydrOXYzine 25 MG tablet PO SCH (20:20)
[2020-05-20] MEDS: OLANZAPINE 5 MG TABLET PO SCH (20:21)
--- NOTE | 2020-05-20 21:26 | NUR ---
Nursing Progress Note: Legal hold: 5250 Expires 05/22 Client on involuntary status for GD Report received from TARI Jones with use of SBAR. Why are they here: Pt. is on a 5150 for acute psychosis and grave disability. Strong auditory hallucinations with delusions of hell and demons. Patient with recent diagnosis of COVID with positive testing on April 19 per reported hx, and has been asymptomatic per family and pt. since April 26. Pt. has hx of bipolar d/o with similar psychotic symptoms 5 years ago. Assessment What has happened this shift: Pt was in her room talking with her roommate at change of shift regarding a song she was playing for her roommate on the [employer]. Pt states she is just waiting to go home with her parents tomorrow. States her day was "pretty good" and adds "Its getting better being here." Pt had snack in the group room before going to bed. S/I, H/I: Denies both. A/VH: Denies both. Sleep: see sleep hours ADL's: Independent Group attendance: Yes Were Meds taken: Yes Any med S/E: Denies Mental Status Exam Appearance: Clean and neat in casual clothing. Eye contact: Good Behavior: Pleasant and cooperative, socializing with peers and staff. Speech: Soft, clear, normal rate/rhythm. Mood: Euthymic with some depression Affect: Bright Thought process: Linear Thought Content: Relocating back to [place]. Disappointment at not finishing school. Cognition: A&O X4 Insight: Fair Judgment: Fair Interventions PRN's used: None Therapeutic interventions: Provided therapeutic communication and assisted with obtaining sheet music for her to play the Sem[employer], medication administration/education/monitoring, maintained Q 15min safety checks. Restraints/seclusion/emergency medication: N/A Justification of Continued Inpatient Treatment: Per CAROL Zelaya, pt. continues to require a safe and supportive environment and will continue to be monitored over the next few days before any additional medication changes are made.
[2020-05-21 07:30] VITALS: BP 104/75
[2020-05-21] MEDS: OLANZapine 2.5MG tablet PO SCH (08:16)
[2020-05-21] MEDS: lithium carbonate 300mg SR tablet (LithoBID) PO SCH (08:16)
[2020-05-21] MEDS: sertraline 50mg tablet PO SCH (08:16)
[2020-05-21] MEDS ORDERED: OLAN15TA17 PO (11:53)
[2020-05-21] MEDS ORDERED: SERT100T10 PO (11:53)
[2020-05-21] MEDS ORDERED: HYDR-3686 PO ×2 (11:53)
[2020-05-21] MEDS ORDERED: OLAN5TAB26 PO (11:53)
[2020-05-21] MEDS ORDERED: LIT300C PO (11:53)
--- NOTE | 2020-05-21 13:35 | NUR ---
Pt. discharged to home with parents. RN discussed f/u plan and medications with pt., pt. received f/u instructions and verbalized understanding. Pt. denies SI/HI, A/V hallucinations. Pt. reports feeling better, but continues to feel "empty". Pt. showed improvement during hospitalization. Pt. in no apparent distress. Pt. received all belongings.
== END 2020-05-21 13:35 | disposition home or self-care (01) | DRG 885 ==
LOC: ADULT MH 18:04
PROVIDERS: ADMIT Psychiatry & Neurology Psychiatry; ATTEND Psychiatry & Neurology Psychiatry
DX: F31.9 Bipolar disorder, unspecified (principal); E11.9 Type 2 diabetes mellitus without complications; I10 Essential (primary) hypertension; Z88.0 Allergy status to penicillin; Z79.899 Other long term (current) drug therapy
CPT/HCPCS: 36415; 80061; 80178; 83036; 87081; Q0177